=== PATIENT | female | born 1930 | race Caucasian/White ===

== ENCOUNTER 2016-09-26 07:55 | Emergency (ER) | payer MEDICARE ==
[~2016-09-26] VITALS: Ht 160 cm; Wt 54.5 kg
[~2016-09-26 07:55] MED LIST: BISA-67 PO; FENT1PAT11 TRANSDERM; HYDR4TAB PO; KLO5T PO; SENN25TA8 PO
[2016-09-26 08:05] VITALS: BP 170/75; PULSE 69; RESP 21; O2SAT 99
[2016-09-26] MEDS ORDERED: ONDA4TAB12 PO (08:29)
[2016-09-26] MEDS ORDERED: LIDO5CRE17 TOPICAL (08:29)
[2016-09-26] MEDS ORDERED: L GA1CAP2 PO (08:30)
--- NOTE | 2016-09-26 08:42 | ED.REPORT ---
HPI-General Illness Date of Service Sep 26, 2016 ED Provider: Dr. Lavelle Allen The patient is a 86 year old female w/ a hx of chronic pain, severe osteoarthritis, spinal stenosis, and CHF who presents to the ED due to increased left shoulder pain since decreasing her chronic pain medication a week ago. The pain is worse with movement and palpation, begins in her shoulder and radiates up her neck and into her head since. She has tried ice and warm compresses. She takes two 4 mg hydromorphone per day, last dosage at 0430. Pt has been working with a pain clinic for her severe osteoarthritis pain and has had her chronic pain medications decreased 1 week ago. She denies any fall or injury that may have caused the pain. Her pain is worse with movement and exacerbation. Pt says that her pain is musculoskeletal and denies cardiac symptoms, SOB, chest pain, fever, and numbness. She has had shoulder injections and has been told her pain is bone on bone. Nursing Notes Stated Complaint: JOINT PAIN Chief Complaint: General Complaint Nursing Notes Reviewed: Yes Allergies: Coded Allergies: adhesive tape (Verified Allergy, Intermediate, Pulls skin, 09/26/16) Pt states that tape adhesive pulls and tears skin. iodine (Verified Allergy, Intermediate, Rash, 09/26/16) Contrast Media (Verified Allergy, Unknown, 09/26/16) gabapentin (Verified Allergy, Unknown, Nausea,Vomiting, 09/26/16) shellfish derived (Verified Allergy, Unknown, 09/26/16) polyethylene glycol 3350 (Verified Adverse Reaction, Mild, 09/26/16) Uncoded Allergies: SHELL FISH (Allergy, Intermediate, 03/09/11) IVP DYE (Allergy, Unknown, 03/26/15) Scheduled Fentanyl 100 mcg/hr Patch (Fentanyl 100 mcg/hr Patch) 1 Each Patch.td72 1 PATCH TRANSDERM Q3D Fentanyl 100 mcg/hr Patch (Fentanyl 100 mcg/hr Patch) 1 Each Patch.td72 0.25 PATCH TRANSDERM Q3D l Gasseri/B Bifidum/B Longum ([employer] Capsule) 1 Each Capsule 1 EACH PO PRN Scheduled PRN Hydromorphone (Hydromorphone) 4 Mg Tablet 4-8 MG PO Q4-6H PRN PRN Pain Lidocaine Cream (Lidocaine Cream) 5 Gm Cream..g. 1 APPLIC TOPICAL DIRECTED PRN PRN For Pain Ondansetron ODT (Ondansetron ODT) 4 Mg Tab.rapdis 4 MG PO Q4H PRN PRN PRN For Nausea General Time Seen by MD: 08:42 Chief Complaint Other (left shoulder pain) Hx Obtained From: Patient Arrived By: Walk-in Sudden in Onset?: Yes Onset Occurred: 5 - 8 hours ago Symptom Duration: Since onset Location: : Shoulder left Quality: Painful Severity: Current: Moderate Recent Healthcare: No recent doctor visit, No recent hospitalization Similar Sx Previous: No Past Medical History Past Medical History Chronic pain SBO Spinal Stenosis Arthrisis UTI CHF Bilateral hip pain Diverticulitis Chronic constipation Past Surgical History knee replacement Reports: Appendectomy, Cholecystectomy Reports: Knee replacement Family History noncontributory Smoking History Never Smoker Social History Alcohol Use: Denies alcohol use Drug Use: Denies drug use Ambulatory Status Independent Review of Systems Full Review of Systems Constitutional: Denies: Fever Respiratory: Denies: Shortness of breath Cardiovascular: Denies: Chest pain Musculoskeletal: Reports: Joint pain, Neck pain Neurologic: Denies: Numbness Complete sys rev & neg: except as marked. Physical Exam Vital Signs Vital Signs Date Time Temp Pulse Resp B/P Pulse Ox O2 Delivery O2 Flow Rate FiO2 09/26/16 09:38 62 13 133/59 94 Room Air 09/26/16 08:05 36.7 69 21 170/75 99 Room Air Initial VS: Reviewed General/Constitutional: Well-developed, Well-nourished Head / Eyes: Atraumatic, Normocephalic, PERRL ENT: Mucous membranes moist, Conjunctiva normal Abdomen / GI: Soft, Non-tender Skin: Warm, Dry Neurologic: Alert, Oriented Psychiatric: Mood/affect normal, Behavior normal General/Constitutional: Awake, Alert Cardiovascular: Cap refill not delayed 2+ radial pulse Upper Extremities Left Shoulder: Positive: Tenderness present... tenderness to palpation along distribution along left trapezius reproduceable pain with active and passive ROM Re-Eval/Medical Decision Med Decision/Clinical Course Physical exam and history are very consistent with musculoskeletal left trapezius strain, recommend that she continue her pain medication, no indication for diagnostic evaluation as this is a clinical diagnosis. Agrees to follow-up tomorrow with pain management. Return precautions given. Counseled Regarding: Diagnosis, Lab results, Need for follow-up, When/why to return to ED Discharge & Departure Primary Impression: Left shoulder pain Chronicity: unspecified Qualified Code: M25.512 - Pain in left shoulder Disposition: Home Discharge Condition All VS Reviewed: Yes Condition: Stable Additional Instructions: Your symptoms are musculoskeletal from your trapezius muscle and not cardiac related. Stretching, heat, and ice may help your symptoms. Continue to take your hydromorphone as directed. Follow up with [facility] regarding a pain management plan. I will give you a card for the Suboxone clinic, which is another option you can consider. Return to the Emergency Department for any new or worsening symptoms. I hope you feel better soon! Referrals: Renetta Bwoen MD (PCP) Scribe Attestation Portion of this note were transcribed by Betty Chand. I, Dr. Allen, personally performed the history, physical exam, and medical decision-making: I reviewed and confirmed the accuracy for the information in the transcribed note. Signed by: zoila Vega, 09/26/16 1000 copies to: Renetta Bowen MD, Timothy S DO Sep 26, 2016 08:42 Betty Chand Sep 26, 2016 08:53
[2016-09-26 09:38] VITALS: BP 133/59; PULSE 62; RESP 13; O2SAT 94
== END 2016-09-26 09:40 | disposition home or self-care (01) ==
LOC: EDBD 07:55 → SED 07:55
DX: M25.512 Pain in left shoulder (principal); I50.9 Heart failure, unspecified; Z88.8 Allergy status to other drugs, medicaments and biological substances; Z91.013 Allergy to seafood; Z91.041 Radiographic dye allergy status; Z91.048 Other nonmedicinal substance allergy status

== ENCOUNTER 2016-12-21 20:31 | Emergency (ER) | payer MEDICARE ==
[~2016-12-21] VITALS: Ht 160 cm; Wt 51.4 kg
[~2016-12-21 20:31] MED LIST changes: -BISA-67 PO; -KLO5T PO; +L GA1CAP2 PO; +LIDO5CRE17 TOPICAL; +ONDA4TAB12 PO; -SENN25TA8 PO
[2016-12-21] MEDS ORDERED: DICL50TA7 PO (20:39)
[2016-12-21] MEDS ORDERED: CYCL10TA9 PO (20:39)
[2016-12-21] MEDS ORDERED: FENT-2 TRANSDERM (20:39)
[2016-12-21] MEDS ORDERED: HYDR50CA3 PO (20:39)
[2016-12-21 20:42] VITALS: BP 141/57; PULSE 85; RESP 16; O2SAT 96
--- NOTE | 2016-12-21 20:42 | ED.REPORT ---
HPI-General Illness Date of Service Dec 21, 2016 ED Provider: Dr. Zimmerman 86 y/o female with a hx of chronic pain, chronic constipation, severe osteoarthritis, spinal stenosis, and CHF presents to the ED complaining of myalgia, onset a few days ago. Associated sx include alternating between hot and cold feeling, fever, dry heaves and weakness. The pt has been going to a pain management clinic for over a month. has been taking 75mEQ Fentanyl, tapered down [id number] and 4mg Hydromorphone, although she did not take any today. She was doing well until recently when she developed bursitis in both elbows. As per the daughter, the pt has also been mildly confused. The pt denies any other sx at this time, including abdominal pain. Nursing Notes Stated Complaint: PAIN Chief Complaint: General Complaint Nursing Notes Reviewed: Yes Allergies: Coded Allergies: adhesive tape (Verified Allergy, Intermediate, Pulls skin, 12/21/16) Pt states that tape adhesive pulls and tears skin. iodine (Verified Allergy, Intermediate, Rash, 12/21/16) Contrast Media (Verified Allergy, Unknown, 12/21/16) gabapentin (Verified Allergy, Unknown, Nausea,Vomiting, 12/21/16) shellfish derived (Verified Allergy, Unknown, 12/21/16) polyethylene glycol 3350 (Verified Adverse Reaction, Mild, 12/21/16) Uncoded Allergies: SHELL FISH (Allergy, Intermediate, 03/09/11) IVP DYE (Allergy, Unknown, 03/26/15) Scheduled Diclofenac ER (Diclofenac ER) 50 Mg Tablet 50 MG PO BIDWM Fentanyl 75 mcg/hr Patch (Fentanyl 75 mcg/hr Patch) 1 Each Patch.td72 1 PATCH TRANSDERM Q3D Scheduled PRN Cyclobenzaprine (Cyclobenzaprine) 10 Mg Tablet 10 MG PO BID PRN PRN Spasm Hydromorphone (Hydromorphone) 4 Mg Tablet 4-8 MG PO Q4-6H PRN PRN Pain NOT MORE THAN 5 TABS/24 HR Hydroxyzine Pamoate (HydrOXYzine Pamoate) 50 Mg Capsule 50 MG PO QID PRN PRN For Itching General Time Seen by MD: 20:42 Chief Complaint Other (myalgia) Hx Obtained From: Patient, Daughter Sudden in Onset?: No Onset Occurred: 3 days ago Symptom Duration: Since onset Severity: Current: Moderate Severity: Maximum: Moderate Recent Healthcare: Recent doctor visit Similar Sx Previous: No Past Medical History Past Medical History Chronic pain SBO Spinal Stenosis Arthrisis UTI CHF Bilateral hip pain Diverticulitis Chronic constipation bursitis in both elbows Past Surgical History knee replacement Reports: Appendectomy, Cholecystectomy Reports: Knee replacement Family History noncontributory Smoking History Never Smoker Social History Alcohol Use: Denies alcohol use Drug Use: Denies drug use Other Social History: Lives with children (with daughter) Ambulatory Status Walker Review of Systems Reports: dry heaving Full Review of Systems Constitutional: Reports: Weakness - generalized GI: Denies: Abdominal pain Musculoskeletal: Reports: Myalgia Psychiatric: Reports: Confusion Complete sys rev & neg: except as marked. Physical Exam Vital Signs Vital Signs Date Time Temp Pulse Resp B/P Pulse Ox O2 Delivery O2 Flow Rate FiO2 12/22/16 01:30 37.9 84 16 125/67 94 Room Air 12/21/16 20:42 37.9 85 16 141/57 96 Room Air Head / Eyes: Atraumatic, Normocephalic ENT: Mucous membranes moist, Conjunctiva normal, No scleral icterus Neck: Supple, Non-tender, Full range of motion Abdomen / GI: Soft, Non-tender Extremities: Vascular intact, Neuro intact, No swelling, No tenderness Skin: Warm, Dry, No cyanosis Neurologic: Alert, Oriented, Nonfocal General/Constitutional: Awake, Alert, Cooperative Distress / Hydration: Positive: Distress mild Respiratory / Chest: Atraumatic, Breath sounds NL, Breath sounds = bilat, No respiratory distress, No rales, No rhonchi, No wheezing Cardiovascular: Heart rate NL, Regular rhythm, Heart sounds NL Heart Sounds / Murmur: Positive: Systolic murmur present.. (III/; right upper sternal border) Interpretation & Diagnostics Lab Results Interpretation Result Diagram: 12/21/16211412/21/16 213 Test 12/21/16 21:15 12/21/16 21:30 12/21/16 22:43 White Blood Count 12.0th/mm3 (3.8-10.1) Red Blood Count 3.71mil/mm3 (3.90-5.20) Hemoglobin 11.4g/dL (12.0-15.6) Hematocrit 34.7% (35.0-46.0) Mean Corpuscular Volume 93.5fL (81-100) Mean Corpuscular Hemoglobin 30.7pg (27.0-35.0) Mean Corpuscular Hemoglobin Concent 32.9% (32.0-37.0) Red Cell Distribution Width 13.6% (12.3-15.4) Platelet Count 332bil/L (150-400) Neutrophils (%) (Auto) 84.2% (40-74) Lymphocytes (%) (Auto) 8.3% (14-46) Monocytes (%) (Auto) 7.0% (4-12) Eosinophils (%) (Auto) 0% (0-5) Basophils (%) (Auto) 0.2% (0-3) Sodium Level 132mEq/L (134-144) Potassium Level 4.8mEq/L (3.5-5.2) Chloride Level 95mEq/L (97-108) Carbon Dioxide Level 24mmol/L (18-29) Blood Urea Nitrogen 20mg/dL (8-27) Creatinine 0.63mg/dL (0.57-1.00) Estimat Glomerular Filtration Rate 128mL/min (>59) Glucose Level 142mg/dL (60-99) Lactic Acid Level 1.1mmol/L (0.4-2.0) Calcium Level 8.3mg/dL (8.5-10.1) Magnesium Level 2.7mg/dL (1.6-2.6) Total Bilirubin 0.4mg/dL (0.0-1.2) Aspartate Amino Transf (AST/SGOT) 18U/L (0-50) Alanine Aminotransferase (ALT/SGPT) 6U/L (0-32) Alkaline Phosphatase 75U/L (25-165) Total Protein 6.1g/dL (6.4-8.4) Albumin 2.8g/dL (3.4-5.0) Hold See Top Tube Received (Received) Urine Color Dark yellow (YELLOW) Urine Appearance Clear (CLEAR,HAZY) Urine pH >9.0 (5.0-8.0) Urine Specific Deposit 1.015 (1.003-1.035) Urine Protein 30mg/dL (NEG,TRACE) Urine Glucose (UA) Negativemg/dL (NEGATIVE) Urine Ketones Negativemg/dL (NEGATIVE) Urine Occult Blood Negative (NEGATIVE) Urine Nitrite Negative (NEGATIVE) Urine Bilirubin Negative (NEGATIVE) Urine Urobilinogen Normalmg/dL (NORMAL) Urine Leukocyte Esterase Negative (NEGATIVE) Urine RBC 0-2/hpf (0-2) Urine WBC 0-5/hpf (0-5) Urine Epithelial Cells Moderate/hpf (NONE-MOD) Urine Crystals None seen (NONE SEEN) Urine Bacteria Few/hpf (NONE-FEW) Urine Hyaline Casts None/lpf (NONE) Urine Granular Casts None seen (NONE SEEN) Urine Waxy Casts None seen (NONE SEEN) Urine Red Blood Cell Casts None seen (NONE SEEN) Urine White Blood Cell Casts None seen (NONE SEEN) Urine Mucus Present (None Seen) Urine Trichomonas None seen (NONE SEEN) Urine Yeast None (NONE SEEN) Urinalysis Comment None Urine Culture Reflexed Not indicated X-Ray Chest Interpretation Chest Xray Interpretation: IMPRESSION: 1. Mild chronic interstitial prominence without acute cardiopulmonary disease. Dictated by: Stan Michele M.D. on 12/21/2016 at 22:25 Approved by: Stan Michele M.D. on 12/21/2016 at 22:26 View: Portable, 1 view Interpretation / Wet Read by: Interpret - Radiologist CT Head Interpretation Conclusion: Asymmetrical low-denisty left posterior occipital cortex may be due to an acute or subacute infarct. MRI may be worthwhile for urther evaluation. 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 Moderate involutional changes. Moderate patchy low density bilaterally in the deep white matter likely due to chronic ischemic small vessel disease. No acute intracranial abnormality. Signed Dr. Jose Scott 12/21/16 22:20 Study: Head CT no contrast Interpretation / Wet Read by: Interpret - Radiologist Re-Eval/Medical Decision Med Decision/Clinical Course I discussed with the patient her lab results including chest x-ray, UA, blood counts, and CT scan. I offered admission to further workup her abnormal CT scan and have an MRI done tomorrow. Patient states that she feels absolutely fine, and has no evidence of a stroke. She is alert and oriented 3. Her daughter notes that her mental status is at baseline. I recommended a follow-up MRI to be done as an outpatient. They will follow-up with Dr. Bowen. Pts symptoms could alternatively be explained by narcotic withdrawal symptoms as she has been undergoing a taper and she did not take her Dilaudid today. Her symptoms seemed to resolve after she was given Dilaudid 2mg IV. Time of Eval: 00:53 Re-Evaluation/Progress Note: I discussed with the patient her lab results including chest x-ray, UA, blood counts, and CT scan. I offered admission to further workup her abnormal CT scan and have an MRI done tomorrow. Patient states that she feels absolutely fine, and has no evidence of a stroke. She is alert and oriented 3. Her daughter notes that her mental status is at baseline. I recommended a follow-up MRI to be done as an outpatient. They will follow-up with Dr. Bowen. Pts symptoms could alterantively be explained by narcotic withdrawal symptoms as she has been undergoing a taper and she did not take her dialudid today. Her syptoms seemed to resolve after she was given dilaudid 2mg IV. Counseled Regarding: Diagnosis Discharge & Departure Primary Impression: Leukocytosis Leukocytosis type: unspecified Qualified Code: D72.829 - Elevated white blood cell count, unspecified Additional Impressions: Chronic pain Chronic pain type: other chronic pain Qualified Code: G89.29 - Other chronic pain Narcotic withdrawal Anemia Anemia type: unspecified type Qualified Code: D64.9 - Anemia, unspecified Hyperglycemia Hyponatremia Ruled Out: UTI (urinary tract infection), Pneumonia Disposition: Home Discharge Condition All VS Reviewed: Yes Patient Instructions: Back Pain (GEN) Additional Instructions: Thank you for trusting us with your care today. Your emergency room evaluation included an interview, physical exam, blood tests , urinalysis, chest x-ray, and head CT. There is no evidence of a UTI or a pneumonia. Head CT showed a small area of abnormality that could represent a recent stroke. The radiologist recommends an MRI be done for further evaluation. Admission was offered, but as you feel well and you are not wanting to be admitted, I would recommend having this done as an outpatient with your primary care provider. Please follow up next week. Return to the ER for new or worsening symptoms. Continue your current medications for pain. Referrals: Renetta Bowen MD (PCP) Scribe Attestation Portions of this note were transcribed by Gabriel Pennington. I, , personally performed the history, physical exam and medical decision- making;I reviewed and confirmed the accuracy of the information in the transcribed note. Signed by Chayito Valentine. 12/21/16 23:49 copies to: Renetta Bowen MD, Gary R DO Dec 21, 2016 20:42 Gabriel Pennington Dec 21, 2016 21:41
[2016-12-21] MEDS ORDERED: 0.9% Sodium Chloride 1,000 ML IV ONE (21:34)
[2016-12-21 21:43] LABS: BASOPHILS % (AUTO) 0.2 % (0-3); EOSINOPHILS % (AUTO) 0 % (0-5); Mean Corpuscular Hemoglobin 30.7 pg (27.0-35.0); Mean Corpuscular Volume 93.5 fL (81-100); NEUTROPHILS % (AUTO) 84.2 % (40-74); Platelet Count 332 bil/L (150-400)
[2016-12-21] MEDS ORDERED: HYDROmorphone 1 mg/mL Inj IVPUSH ONE ×2 (22:00→23:40)
[2016-12-21 22:04] LABS: Magnesium 2.7 mg/dL (1.6-2.6)
--- NOTE | 2016-12-21 22:28 | DRSVH ---
PROCEDURE: X-RAY CHEST ONE VIEW, PORTABLE ([id number]) INDICATIONS: ALTERED MENTAL STATUS, WEAKNESS, CHILLS TECHNIQUE: One view of the chest was acquired. COMPARISON: [facility], , CHEST 1VW (PORTABLE), 07/09/2013, 9:34. FINDINGS: Surgical changes and devices: None. Lungs and pleura: No pleural effusions or pneumothorax. There is mild interstitial prominence redem onstrated. No acute consolidation. Mediastinum: Mediastinal contours appear unchanged. Heart size is normal. Bones and chest wall: No suspicious bony lesions. Overlying soft tissues appear unremarkable. IMPRESSION: 1. Mild chronic interstitial prominence without acute cardiopulmonary disease. Dictated by: Stan Michele M.D. on 12/21/2016 at 22:25 Approved by: Stan Michele M.D. on 12/21/2016 at 22:26
[2016-12-21 22:55] LABS: APPEARANCE,URINE CLEAR (CLEAR,HAZY); COLOR,URINE DARK YELLOW (YELLOW)
[2016-12-21 22:56] LABS: OCCULT BLOOD,URINE NEGATIVE (NEGATIVE); PH,URINE >9.0 (5.0-8.0); UROBILINOGEN,URINE NORMAL (NORMAL)
[2016-12-22 01:30] VITALS: BP 125/67; PULSE 84; RESP 16; O2SAT 94
--- NOTE | 2016-12-22 07:53 | DRSVH ---
PROCEDURE: CT BRAIN WITHOUT CONTRAST ([id number]) INDICATIONS: AMS TECHNIQUE: Noncontrast 4.5 mm thick angled axial sections acquired from the foramen magnum to the vertex, with c oronal reformats. COMPARISON: [facility], CT, BRAIN W/O CONTRAST, 07/02/2013, 23:19. FINDINGS: Image quality: Excellent. CSF spaces: Basal cisterns are patent. No extra-axial fluid collections. The ventricles are symmet amara in size and shape. Brain: No intracranial bleeds or masses. There is cerebral volume loss for age, with resultant vent ricular and sulcal prominence. Subtle potts-white dedifferentiation within the left occipital lobe has an unchanged appearance when compared with the study dated 07/02/13 (series 2, image 13). There are p eriventricular and deep white matter chronic small vessel ischemic changes. There is a small left bas al ganglia lacunar infarct. There is intracranial internal carotid artery atherosclerosis. Skull and face: Calvarium and visualized facial bones appear intact, without suspicious lesions. Sinuses: Visualized sinuses and mastoids are clear. IMPRESSION: 1. Subtle hypodense region within the left occipital lobe likely unchanged from 2013. If there is hig h clinical suspicion for acute or subacute infarct, noncontrast MRI may be helpful to further charact erize findings. 2. Moderate findings likely associated with microvascular ischemic changes and old left basal ganglia lacunar infarct. These findings are concordant with the overnight interpretation. Dictated by: Windy Jackson M.D. on 12/22/2016 at 7:49 Approved by: Windy Jackson M.D. on 12/22/2016 at 7:52
== END 2016-12-22 01:17 | disposition home or self-care (01) ==
LOC: SED 20:31 → EDBD 20:31 → SED 12-22 01:17
DX: D72.829 Elevated white blood cell count, unspecified (principal); G89.29 Other chronic pain; D64.9 Anemia, unspecified; I50.9 Heart failure, unspecified; F11.23 Opioid dependence with withdrawal; E87.1 Hypo-osmolality and hyponatremia; Z91.041 Radiographic dye allergy status; Z91.013 Allergy to seafood
CPT/HCPCS: 36415; 70450; 71010; 80053; 81000; 83605; 83735; 85025; 96361; 96374; 96376; 99284; J1170; J7030